=== PATIENT | male | born 1955 | race Caucasian/White ===

== ENCOUNTER → 2016-10-19 | Outpatient (CLI) | payer OTHER, BC | LOC: MMPC 11:11 | PROVIDERS: ATTEND Internal Medicine | DX: Z45.2 Encounter for adjustment and management of vascular access device (principal) ==

== ENCOUNTER → 2016-11-15 | Outpatient (CLI) | payer OTHER, BC | LOC: MMPC 11:11 | PROVIDERS: ATTEND Internal Medicine | DX: M54.5 Low back pain (principal); I10 Essential (primary) hypertension; M54.6 Pain in thoracic spine; Z02.89 Encounter for other administrative examinations | CPT/HCPCS: 99214; G0463 ==

== ENCOUNTER → 2016-12-03 | Outpatient (CLI) | payer OTHER, BC ==
--- NOTE | 2016-12-03 13:26 | EKG ---
[address] [address] Measurements Intervals [place] Rate: 70 P: 51 MN: 183 QRS: 51 QRSD: 105 T: 36 QT: 381 QTc: 402 Interpretive Statements SINUS RHYTHM INCOMPLETE RIGHT BUNDLE BRANCH BLOCK Compared to ECG 04/30/2015 12:31:33 No significant changes Electronically Signed On 12-03-16 16:08:40 MST by Cesar Linares [email or web address]
[2016-12-03 13:41] LABS: ASPARTATE AMINO TRANSFERASE 22 IU/L (21-57); BILIRUBIN,TOTAL 0.2 mg/dL (0.3-1.2); BLOOD UREA NITROGEN 14 mg/dL (7-22); CALCIUM 9.2 mg/dL (8.7-10.7); CHLORIDE 105 meq/L (98-112); CREATININE 0.8 mg/dL (0.70-1.50); EST GLOMERULAR FILTRATION > 60 (>60 ml/min/1.73m(2)); GLUCOSE 91 mg/dL (78-110); POTASSIUM 4.4 meq/L (3.8-5.2); SODIUM 140 meq/L (135-145); TOTAL PROTEIN 6.7 g/dL (6.1-8.0)
[2016-12-03 13:44] LABS: BASOPHILS # (AUTO) 0.04 10*3/UL; BASOPHILS % (AUTO) 0.7 % (0-1); EOSINOPHILS % (AUTO) 1.6 % (0-8); HEMOGLOBIN 13.6 g/dL (14.0-18.0); IMM GRAN % (AUTO) 0 % (0-5); IMM GRAN# (AUTO) 0 10*3/UL; LYMPHOCYTES # (AUTO) 1.35 10*3/uL; LYMPHOCYTES % (AUTO) 24.1 % (10-50); MEAN CORPUSCULAR HEMOGLOBIN 32.3 PG (27-31); MEAN CORPUSCULAR HGB CONC 34.9 g/dL (33-37); MEAN PLATELET VOLUME 8.8 FL (7.4-12.2); MONOCYTES # (AUTO) 0.53 10*3/UL (0.3-0.8); MONOCYTES % (AUTO) 9.5 % (5-15); NEUTROPHILS # (AUTO) 3.59 10*3/UL; NEUTROPHILS % (AUTO) 64.1 % (50-80); RDW COEFFICIENT OF VARIATION 12.4 % (11.5-14.5); RED BLOOD COUNT 4.21 10^6/uL (4.70-6.10)
[2016-12-03 13:50] LABS: PLATELET MORPHOLOGY COMMENT NORMAL MORPHOLOGY (NORM)
--- NOTE | 2016-12-03 17:10 | DI ---
XR CXR 2VW PA/LAT,12/03/2016 1:33 PM: Clinical History: Thoracic scoliosis Previous Exam: April 30, 2015 Findings: PA and lateral views of the chest are obtained, and demonstrate new postsurgical changes at the cervi cothoracic junction consistent with anterior screw and plate fixation of the distal cervical spine. There is a stable chest port noted with the tip in good position. There is stable S-shaped scoliosis of the thoracic spine. There is no infiltrate nor effusion. There is stable mild COPD. Impression: New postsurgical changes otherwise unchanged from prior.
== END ==
LOC: LAB 13:07
PROVIDERS: ATTEND Orthopaedic Surgery
DX: M41.24 Other idiopathic scoliosis, thoracic region (principal); J44.9 Chronic obstructive pulmonary disease, unspecified; I45.19 Other right bundle-branch block
CPT/HCPCS: 36415; 71020; 80053; 85025; 85610; 85730; 87641; 93005; 93010

== ENCOUNTER → 2016-12-29 | Outpatient (CLI) | payer OTHER, BC | LOC: MMPC 11:11 | PROVIDERS: ATTEND Internal Medicine | DX: M54.5 Low back pain (principal); Z98.890 Other specified postprocedural states; Z02.89 Encounter for other administrative examinations | CPT/HCPCS: 99214; G0463 ==

== ENCOUNTER → 2017-02-14 | Outpatient (CLI) | payer OTHER, BC | LOC: MMPC 11:11 | PROVIDERS: ATTEND Internal Medicine | DX: M54.6 Pain in thoracic spine (principal); M62.830 Muscle spasm of back; M54.5 Low back pain; Z02.89 Encounter for other administrative examinations | CPT/HCPCS: 99214; G0463 ==

== ENCOUNTER → 2017-02-25 | Outpatient (CLI) | payer OTHER, BC ==
[2017-02-25 13:56] LABS: BASOPHILS # (AUTO) 0.04 10*3/UL; BASOPHILS % (AUTO) 0.7 % (0-1); EOSINOPHILS # (AUTO) 0.11 10*3/UL; HEMATOCRIT 40.5 % (42.0-52.0); HEMOGLOBIN 13.4 g/dL (14.0-18.0); LYMPHOCYTES # (AUTO) 1.07 10*3/uL; MEAN CORPUSCULAR HEMOGLOBIN 30.6 PG (27-31); MEAN CORPUSCULAR HGB CONC 33.1 g/dL (33-37); MEAN CORPUSCULAR VOLUME 92.5 FL (80-90); MEAN PLATELET VOLUME 8.9 FL (7.4-12.2); MONOCYTES # (AUTO) 0.49 10*3/UL (0.3-0.8); MONOCYTES % (AUTO) 8.7 % (5-15); NEUTROPHILS % (AUTO) 69.4 % (50-80); RED BLOOD COUNT 4.38 10^6/uL (4.70-6.10)
[2017-02-25 14:17] LABS: PLATELET MORPHOLOGY COMMENT NORMAL MORPHOLOGY (NORM); RBC MORPHOLOGY COMMENT NORMAL MORPHOLOGY (NORM); WBC MORPHOLOGY COMMENT NORMAL MORPHOLOGY (NORM)
[2017-02-25 14:23] LABS: BLOOD UREA NITROGEN 12 mg/dL (7-22); BUN/CREATININE RATIO 17.14 (6-20); CALCIUM 9.2 mg/dL (8.7-10.7); EST GLOMERULAR FILTRATION > 60 (>60 ml/min/1.73m(2))
== END ==
LOC: LAB 13:23
PROVIDERS: ATTEND Internal Medicine
DX: C85.88 Other specified types of non-Hodgkin lymphoma, lymph nodes of multiple sites (principal)
CPT/HCPCS: 36415; 80053; 85025

== ENCOUNTER → 2017-03-28 | Outpatient (CLI) | payer OTHER, BC | LOC: MMPC 11:11 | PROVIDERS: ATTEND Internal Medicine | DX: Z85.72 Personal history of non-Hodgkin lymphomas (principal); M54.5 Low back pain | CPT/HCPCS: 99214; G0463 ==

== ENCOUNTER → 2017-04-21 | Outpatient (CLI) | payer OTHER, BC ==
--- NOTE | 2017-04-21 22:20 | DI ---
THORACIC SPINE SERIES, 04/21/2017 2:09 PM: Clinical History: Upper thoracic back pain. Status post cervicothoracic fusion. Previous Exam: 01/15/2010. AP and lateral upright views and an upright lateral swimmer's view are submitted. Since the prior exa m, the patient has undergone anterior fusions from C3-T2 performed with an anterior cervical buttress plate. Posterior fusions have been performed with metallic struts transfixed with screws inserted to the lateral masses in the cervical region and in the pedicles and the thoracic region between C3 and T4. On the lateral swimmer's view there is a metallic structure that overlies the bodies between C5 and C6 and this is not visible on the AP projection. The exact location of this metallic structure in the AP projection is not certain. The remaining vertebral bodies of the thoracic spine are normal. M ild disc space narrowing is present at every subsequent level and there is mild dextroscoliosis of th e midthoracic spine. The remaining pedicles are intact. There are no paravertebral soft tissue masses . A large hiatal hernia is present. There is an indwelling catheter in the superior vena cava inserte d from the right subclavian route. Readin. Status post anterior cervical thoracic fusion and posterior cervical thoracic fusion as above. As sessment for fusion status is difficult and can be better achieved with a CT scan of the cervical tho racic junction. Posterior alignment appears normal. 2. The remainder of the thoracic spine is unremarkable except for diffuse disc space narrowing and a mild dextroscoliosis.
== END ==
LOC: RAD 14:05
PROVIDERS: ATTEND Orthopaedic Surgery
DX: M54.6 Pain in thoracic spine (principal); Z98.1 Arthrodesis status
CPT/HCPCS: 72070

== ENCOUNTER → 2017-04-22 | Outpatient (CLI) | payer OTHER, BC ==
--- NOTE | 2017-04-23 11:48 | DI ---
CERVICAL SPINE SERIES, 04/22/2017 3:10 PM: Clinical History: Arthrodesis. Status post fusions between C3 and T4. Previous Exam: 12/13/2014, and the thoracic spine series from 04/21/2017. AP and lateral views are submitted. There is a metallic implant replacing portions of the bodies of C 5 and C6. The patient is status post anterior fusions between C3-4 through C7-T1. Posterior fusions h ave been accomplished with metallic struts transfixed with pedicle screws inserted bilaterally betwee n T1 and T4 and with screws inserted into the lateral masses bilaterally between C3 and C5. C1 articu lates normally with C2 and the occiput. Prevertebral soft tissue planes are normal. Readin. Status post anterior fusions between C3 and T1 and posterior fusions between C3 and T4. There is a metallic cage replacing portions of the bodies of C5 and C6. 2. The thoracic spine report on this patient from 04/21/2017 made reference to an anterior fusion betw een C3 and T2 and this is incorrect. The anterior fusions spanning the distance between C3 and T1.
== END ==
LOC: RAD 15:06
PROVIDERS: ATTEND Orthopaedic Surgery
DX: Z47.89 Encounter for other orthopedic aftercare (principal); Z98.1 Arthrodesis status
CPT/HCPCS: 72040

== ENCOUNTER 2017-05-28 18:12 | Emergency (ER) | payer OTHER, BC ==
[2017-05-28] MEDS ORDERED: Lidocaine 1% 10 MG/ML - 20 ML VIAL SUBCUT ONE (18:39)
[2017-05-28 20:35] VITALS: RESP 16; TEMP 97.3
--- NOTE | 2017-05-29 03:21 | PDOC ---
Hand / Wrist Injury HPI - General Chief Complaint: Laceration / Wound Stated Complaint: LACERATION TO THE LEFT HAND Date Seen by Provider: 05/28/17 Time Seen by Provider: 18:25 Source: POSITIVE: Patient Exam Limitations: POSITIVE: No limitations Nurse's Notes Reviewed & Considered: Yes - History of Present Illness Initial Comments: The patient is a 62-year-old male. He was operating a jigsaw and the blade accidentally punctured the palmar surface of his left hand laterally over the fifth metatarsal carpal. Incident occurred chest prior to coming to the emergency room. There was a small amount of fat that has evulsed through the puncture wound. Last tetanus vaccination was 2 years ago. Patient denies any bony pain. No sensory motor or vascular symptoms. Have you received a tetanus shot in the past 10 years?: Yes Body Location Affected: REPORTS: Upper Extremity (L) Timing: REPORTS: Abrupt Duration: 1/2 hour Severity: Moderate Location at Time of Onset: REPORTS: Home Context: REPORTS: Other (Puncture as above; see diagram) Location of Injury: REPORTS: Left, Hand Quality: REPORTS: "Pain" (Mild) Modifying Factors: REPORTS: Nothing Exacerbates Associated Symptoms: DENIES: Arm (R), Arm (L), Tingling Distally, Numbness Distally, Loss of Feeling, Loss of Power, Other Any Prior Injuries Related to Current Complaint?: No - Patient Home Medications Home Medications: Home Medications Docusate Sodium [Stool Softener] 100 mg ORAL BID #60 capsule 10/26/13 Fluticasone Propionate [Flonase] 2 spr NASAL QD PRN #1 bottle 10/26/13 Mupirocin Calcium [Bactroban Nasal] 1 gm NS TID #1 tube 07/03/14 Ondansetron [Ondansetron Odt] 1 tab PO QID PRN #14 tab 05/19/15 Diclofenac Sodium [Voltaren] 2 gm TOPICAL QID PRN #2 tube 10/03/15 Tizanidine HCl 2 tab ORAL QHS #180 tab 12/12/15 Esomeprazole Magnesium [Nexium] 40 mg PO DAILY #0 cap 01/27/16 Famciclovir 1,500 mg PO ONCE #9 tab 04/09/16 Nitroglycerin Oint 2% (1gm) [Nitro-Bid Oint 2% (1gm)] 1 ml TOPICAL BID PRN #30 gm 07/13/16 Pravastatin Sodium [Pravachol] 1 tab PO QHS #90 tab 11/11/16 Lisinopril 1 tab PO BID #60 tab 12/27/16 Lisinopril 1 tab PO BID #180 tab 12/29/16 Venlafaxine HCl [Venlafaxine Hcl Er] 1 cap PO DAILY #90 cap 02/14/17 Venlafaxine HCl [Venlafaxine Hcl Er] 1 cap PO QD #90 cap 02/14/17 Ropinirole HCl 1 - 2 tab PO QHS #180 tab 03/28/17 Gabapentin 1 tab PO ASDIR #270 tab 03/30/17 Morphine Sulfate [Morphine Sulfate Cr] 60 mg PO Q8H #90 tab 05/19/17 Oxycodone HCl 2 tab PO TID PRN #180 tab 05/19/17 Sumatriptan Succinate [Imitrex] 1 - 2 tab PO PRN #9 tab 05/25/17 Zolpidem Tartrate 1 tab PO QHS PRN #90 tab 05/25/17 - Patient Allergies Allergies/Adverse Reactions: Allergies Allergy/AdvReac Type Severity Reaction Status Date / Time hydromorphone HCl Allergy Intermediate HALLUCINATI Verified 05/28/17 18:16 [From Dilaudid] ONS erythromycin base AdvReac Intermediate VOMITING Verified 05/28/17 18:16 nylon tape AdvReac Intermediate rash Uncoded 12/29/16 11:37 blistering PAIN CONTRACT AdvReac Unknown NOT Uncoded 12/29/16 11:37 APPLICABLE Past Medical History - heen HEENT History: Cataracts, Hard of Hearing Cardiovascular History: Hypertension Respiratory History: Sleep Apnea, Home CPAP Use, Other (please comment) Additional Respiratory History: ALLERGIC RHINITIS Gastrointestinal History: GERD Genitourinary History: Denies History Endocrine History: Denies History Musculoskeletal History: Arthritis, Fibromyalgia Prosthesis or Implant: Yes (R FOOT SCREW) Neurological History: Migraines Blood Disorders: Denies History Psychiatric History: Depression History of Sexually Transmitted Diseases: No Male Reproductive History: Denies History Cancer History: Other (please comment) Cancer Treatment / Date(s) of Treatment: FIRST TREATMENT IS 11/20/2013 In Past Year Been Physically Harmed or Verbally Threatened: No 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 History of Other Communicable Diseases: No Tobacco Use: Never Smoker Alcohol Use: None Substance Use Type: None Previous Surgical History: Yes Type / Date of Surgery: T&A/ COLONOSCOPY/ INGUINAL HERNIA/ RIGHT SHOULDER SCOPE / RIGHT FOOT FUSION/ UNBILICAL HERNIA/ VASECTOMY/ LEFT HIP EXPLORATION Anesthesia Reactions: No Malignant Hyperthermia: No Significant Family History: Cancer, COPD, Diabetes Past Medical History Reviewed: Reviewed - No Changes ROS - Limitations ROS Limitations: No Limitations Constitution: REPORTS: Denies Symptoms Cardiovascular: REPORTS: Denies Cardiac Symptoms Respiratory: REPORTS: Denies Resp Symptoms Neurological: REPORTS: Denies Neuro Symptoms Gastrointestinal: REPORTS: Denies GI Symptoms Endocrine: REPORTS: Denies Symptoms Musculoskeletal: REPORTS: Denies MS Symptoms Genitourinary: REPORTS: Denies Symptoms Eyes: REPORTS: Denies Symptoms ENT: REPORTS: Denies Symptoms Skin: REPORTS: Other (Puncture wound left hand as above; see diagram) Lympathic: REPORTS: Denies Lympathic Symptoms Immunologic: POSITIVE: Denies Symptoms Psychiatric: POSITIVE: Denies Psych Symptoms Hand / Wrist Injury Exam - General Appearance General Appearance: POSITIVE: Alert, Cooperative, No Acute Distress. NEGATIVE: No Evidence of Trauma - Extremities Upper Extremity: POSITIVE: No Evidence of FB, Normal ROM, Soft Tissue Tenderness , Uninjured Above Wrist, See Diagram (puncture wound palm of left hand). NEGATIVE: Bony Tenderness, Swelling, Ecchymosis, Deformity, Complete Nail Injury , Partial Avulsion, Limited ROM, Limited ROM d/t Pain, Ltd. ROM d/t Funct. Def. , Snuff Box Position Tender, Axial Thumb Load Pain Neurovascular / Tendon: POSITIVE: Sensation Normal, Motor Normal, No Vascular Compromise, Tendon Function Normal Skin: POSITIVE: See Diagram (puncture wound as above) - Respiratory / CVS Respiratory / CVS: POSITIVE: Chest Non Tender, No Ecchymosis, Breath Sounds Normal, No Respiratory Distress, Heart Sounds Normal, Regular Rate/Rhythm Peripheral Pulses: Radial (R): 2+, Radial (L): 2+ Images - Hands Hand: 1 - Puncture wound was avulsion of a small amount of fat Procedure - Additional Procedures Additional Procedures: Other (After local anesthesia with 1% lidocaine the avulsed piece of fat was excised and then the wound was copiously irrigated with normal saline. Wound left to heal by secondary intention.) Hand / Wrist Injury Progress - Patient's Progress Pain Medication Addressed: POSITIVE: Yes (recommended Advil or Tylenol) School/Work Release Addressed: POSITIVE: Not Applicable Re-Examine Time: 19:00 Re-Examine Comment: Avulsed fat excised and wound copiously irrigated with normal saline Status: POSITIVE: Improved, Re-Examined - Consult Counseled: POSITIVE: Patient, RE: DX, RE: Need for F/U Patient Care Time - Estimated PCT Patient Care Time (In Minutes): 40 Vital Signs - VS Reviewed Vital Signs Reviewed: Yes Discharge Clinical Impression: Puncture wound of hand without complication Discharge Disposition: Discharged to Home Condition: Stable Patient Instructions Given at Discharge: Puncture Wound (ED) Additional Instructions: Please wash wound well with soap and water daily. Advil or Tylenol for discomfort. Return anytime at first sign of infection, or if condition worsens in any way. Follow Up With: NACHO HWANG [Primary Care Provider] - (Instructions as above. Wash wound well with soap and water daily. Return anytime if condition worsens, especially at first sign of infection. Follow-up with your primary care provider.)
== END 2017-05-28 19:10 | disposition home or self-care (01) ==
LOC: ER 18:12
DX: S61.432A Puncture wound without foreign body of left hand, initial encounter (principal); W29.8XXA Contact with other powered hand tools and household machinery, initial encounter
CPT/HCPCS: 99282

== ENCOUNTER 2019-09-16 20:54 | Observation (INO) ==
[2019-09-16 21:11] LABS: BASOPHILS # (AUTO) 0.04 10*3/UL; BASOPHILS % (AUTO) 0.5 % (0-1); EOSINOPHILS # (AUTO) 0.07 10*3/UL; EOSINOPHILS % (AUTO) 0.8 % (0-8); Hematocrit [HCT] 45.1 % (42.0-52.0); Hemoglobin [HGB] 15.4 g/dL (14.0-18.0); LYMPHOCYTES # (AUTO) 1.41 10*3/uL; MEAN CORPUSCULAR HGB CONC 34.1 g/dL (33-37); MEAN CORPUSCULAR VOLUME 92.6 FL (80-90); MEAN PLATELET VOLUME 8.8 FL (7.4-12.2); MONOCYTES # (AUTO) 0.73 10*3/UL (0.3-0.8); MONOCYTES % (AUTO) 8.6 % (5-15); NEUTROPHILS # (AUTO) 6.27 10*3/UL; NEUTROPHILS % (AUTO) 73.5 % (50-80); RED BLOOD COUNT 4.87 10^6/uL (4.70-6.10)
[2019-09-16 21:17] LABS: PLATELET MORPHOLOGY COMMENT NORMAL MORPHOLOGY (NORM); RBC MORPHOLOGY COMMENT NORMAL MORPHOLOGY (NORM); WBC MORPHOLOGY COMMENT NORMAL MORPHOLOGY (NORM)
[2019-09-16 21:19] LABS: BLOOD UREA NITROGEN 21 mg/dL (7-22); BUN/CREATININE RATIO 23.33 (6-20); SERUM ALBUMIN 4.7 g/dL (3.5-4.8)
[2019-09-16] MEDS ORDERED: ONDANSETRON 4 MG/2 ML VIAL IVP ONE (21:20)
[2019-09-16] MEDS ORDERED: MORPHINE SULFATE 4 MG/1 ML IVP ONE (21:20)
[2019-09-16] MEDS ORDERED: Zolpidem Tab 5 MG TAB PO PRN (22:25)
[2019-09-16] MEDS ORDERED: CALCIUM CARBONATE 500 MG (TUMS) CHEWABLE TABLET PO PRN (22:25)
[2019-09-16] MEDS ORDERED: FLUTICASONE PROPIONATE 16 GRAM (120 SPRAYS / BOTTLE) ENOS PRN (22:25)
[2019-09-16] MEDS ORDERED: NITROGLYCERIN 0.4 MG SL TAB (BOTTLE OF 3) SL PRN (22:25)
[2019-09-16] MEDS ORDERED: LIDOCAINE W/ SODIUM BICARB 0.5 ML SYR SUBD PRN (22:25)
[2019-09-16] MEDS ORDERED: ASPIRIN 81 MG (BABY) CHEWABLE TABLET PO ONE (22:25)
[2019-09-16] MEDS ORDERED: CLOPIDOGREL BISULFATE 300 MG TABLET PO ONE (22:25)
[2019-09-16] MEDS ORDERED: MORPHINE SULFATE 2 MG/1 ML IV PRN (22:25)
[2019-09-16] MEDS: MORPHINE SULFATE 30 MG ER TABLET PO SCH (23:26)
[2019-09-16] MEDS: ENOXAPARIN SODIUM 100 MG/1 ML SYRINGE SUBCUT SCH (23:34)
[2019-09-16] MEDS: GABAPENTIN 400 MG CAPSULE PO SCH (23:35)
[2019-09-16] MEDS: Ropinirole Tab 1 MG TAB PO SCH (23:35)
[2019-09-16] MEDS: Pravastatin 80mg Tab PO SCH (23:36)
[2019-09-17 00:07] LABS: AMPHETAMINE SCREEN NEGATIVE (NEG); CANNABINOID SCREEN,URINE NEGATIVE (NEG); COCAINE SCREEN NEGATIVE (NEG); METHADONE URINE SCREEN NEGATIVE (NEG); METHAMPHETAMINES SCREEN,URINE NEGATIVE (NEG); OPIATE SCREEN,URINE POSITIVE (NEG); URINE SAMPLE TYPE VOIDED SPECIMEN; URINE SPECIFIC GRAVITY - MAN 1.016
[2019-09-17] MEDS ORDERED: PANTOPRAZOLE IV 40 MG VIAL IVP ONE (00:38)
[2019-09-17] MEDS ORDERED: PANTOPRAZOLE 40 MG TABLET PO SCH (09:00)
[2019-09-17] MEDS: VENLAFAXINE HCL XR 150 MG CAP PO SCH (10:08)
[2019-09-17] MEDS: DOCUSATE 100 MG CAPSULE PO SCH ×2 (10:09→20:56)
[2019-09-17] MEDS: LISINOPRIL 20 MG TABLET PO SCH ×2 (10:09→20:58)
[2019-09-17] MEDS: VENLAFAXINE XR 75 MG CAP PO SCH (10:09)
[2019-09-17] MEDS: GABAPENTIN 400 MG CAPSULE PO SCH ×2 (10:11→21:03)
[2019-09-17] MEDS: ASPIRIN 325 MG TABLET PO SCH (10:11)
[2019-09-17] MEDS: ENOXAPARIN SODIUM 100 MG/1 ML SYRINGE SUBCUT SCH ×2 (10:19→22:16)
[2019-09-17] MEDS: oxyCODONE IR Tab 5 MG TAB PO PRN ×2 (11:19→17:30)
[2019-09-17] MEDS: MORPHINE SULFATE 30 MG ER TABLET PO SCH ×2 (11:30→19:09)
[2019-09-17] MEDS ORDERED: POTASSIUM CHLORIDE 20 MEQ TAB PO ONE (15:18)
[2019-09-17] MEDS: PANTOPRAZOLE IV 40 MG VIAL IVP SCH (16:05)
[2019-09-17] MEDS: Ropinirole Tab 1 MG TAB PO SCH (20:57)
[2019-09-17] MEDS: Pravastatin 80mg Tab PO SCH (20:58)
[2019-09-17] MEDS ORDERED: GABAPENTIN 400 MG CAPSULE PO SCH (21:15)
[2019-09-18] MEDS: MORPHINE SULFATE 30 MG ER TABLET PO SCH ×2 (03:28→10:45)
[2019-09-18 04:37] LABS: BLOOD UREA NITROGEN 10 mg/dL (7-22); BUN/CREATININE RATIO 16.66 (6-20)
[2019-09-18 07:20] VITALS: RESP 16
[2019-09-18] MEDS: ASPIRIN 325 MG TABLET PO SCH (08:19)
[2019-09-18] MEDS: LISINOPRIL 20 MG TABLET PO SCH (08:19)
[2019-09-18] MEDS: GABAPENTIN 400 MG CAPSULE PO SCH (08:19)
[2019-09-18] MEDS: PANTOPRAZOLE IV 40 MG VIAL IVP SCH (08:19)
[2019-09-18] MEDS: VENLAFAXINE XR 75 MG CAP PO SCH (08:20)
[2019-09-18] MEDS: DOCUSATE 100 MG CAPSULE PO SCH (08:20)
[2019-09-18] MEDS: VENLAFAXINE HCL XR 150 MG CAP PO SCH (08:20)
[2019-09-18] MEDS: ENOXAPARIN SODIUM 100 MG/1 ML SYRINGE SUBCUT SCH (09:56)
[2019-09-18 11:57] VITALS: BP 162/79; TEMP 98.2
[2019-09-18 15:47] VITALS: O2SAT 97
== END 2019-09-18 15:55 | disposition home or self-care (01) ==
LOC: ER 20:54 → MED/SURG 20:54
PROVIDERS: ADMIT Family Medicine; ATTEND Family Medicine